=== PATIENT | female | born 1985 | race Caucasian/White ===

== ENCOUNTER 2016-08-07 11:17 | Emergency (ER) | payer OTHER ==
[~2016-08-07] VITALS: Ht 172.7 cm; Wt 55.0 kg
[2016-08-07 11:18] VITALS: BP 118/67; PULSE 84; RESP 20; TEMP 98.7; O2SAT 99
--- NOTE | 2016-08-07 12:23 | PD ---
HPI Chief Complaint: Related Problem Time Seen by Provider: 12:04 Travel History International Travel<30 days: No Contact w/Intl Traveler<30days: No Traveled to known affect area: No History of Present Illness HPI 30 yo female here for evaluation of possible . Per patient she missed her last period and has not had one in about two months. Actively trying for many months. Performed urine test yesterday which was positive. States feeling bloating. No pain. Some nausea. No urinary or BM issues. No Vaginal bleed or discharge. States she is RH- and was told that on her last she will need rhogham shots throughout her next . She comes here to get evaluated for this. She has no OB in the area as she just moved here from [facility]. Denies any other medical issues. PFSH Past Medical History ?: LMP: 06/07/2016 Social History Alcohol Use: No Tobacco Use: Yes Substance Use: No Allergies-Medications (Allergen,Severity, Reaction): Coded Allergies: No Known Allergies (Unverified , 08/07/16) Review of Systems Except as stated in HPI: all other systems reviewed are Neg Physical Exam Narrative GENERAL: SKIN: Warm and dry. HEAD: Atraumatic. Normocephalic. EYES: Pupils equal and round. No scleral icterus. No injection or drainage. ENT: No nasal bleeding or discharge. Mucous membranes pink and moist. Tongue is midline. No uvula deviation NECK: Trachea midline. No JVD. CARDIOVASCULAR: Regular rate and rhythm. No murmurs, S3, S4. RESPIRATORY: No accessory muscle use. Clear to auscultation. Breath sounds equal bilaterally. GASTROINTESTINAL: Abdomen soft, non-tender, nondistended. Hepatic and splenic margins not palpable. MUSCULOSKELETAL: Extremities without clubbing, cyanosis, or edema. No obvious deformities. NEUROLOGICAL: Awake and alert. No obvious cranial nerve deficits. Motor grossly within normal limits. Five out of 5 muscle strength in the arms and legs. Normal speech. PSYCHIATRIC: Appropriate mood and affect; insight and judgment normal. Data Data Last Documented VS Vital Signs Date Time Temp Pulse Resp B/P Pulse Ox O2 Delivery O2 Flow Rate FiO2 08/07/16 11:18 98.7 84 20 118/67 99 Room Air Orders Beta Hcg (Quant/Titer) (08/07/16 11:49) Complete Rh (08/07/16 11:49) Type And Screen (08/07/16 11:49) Urinalysis - C+S If Indicated (08/07/16 11:49) Ed Urine Pregnancytest Poc (08/07/16 11:49) Rhogam Only (08/07/16 13:03) Labs Laboratory Tests Test 08/07/16 08/07/16 08/07/16 12:08 12:12 13:03 Urine Color LIGHT-YELLOW Urine Turbidity CLEAR Urine pH 7.5 Urine Specific Chaplin 1.008 Urine Protein NEG mg/dL Urine Glucose (UA) NEG mg/dL Urine Ketones NEG mg/dL Urine Occult Blood NEG Urine Nitrite NEG Urine Bilirubin NEG Urine Urobilinogen LESS THAN 2.0 MG/DL Urine Leukocyte Esterase NEG Urine RBC LESS THAN 1 /hpf Urine WBC 1 /hpf Urine Squamous Epithelial 1 /hpf Cells Microscopic Urinalysis Comment CULT NOT INDICATED Human Chorionic Gonadotropin, 7869 MIU/ML Quant Blood Type B NEGATIVE Rho(D) Type Antibody Screen NEGATIVE Blood Bank Comment MDM Medical Decision Making Medical Screen Exam Complete: Yes Emergency Medical Condition: Yes Medical Record Reviewed: Yes Interpretation(s) UA negative Beta in the 7000s Differential Diagnosis ectopic vs vs abdominal pain Narrative Course 30 yo female that presents here for eval of possible , bloating and rhogam shot. Patient was properly examined and found to have signs and symptoms consistent with . Urine test and blood preg and US ordered. This showed about 4-6 weeks. US pending. Before patient could get ultrasound I was informed by nurse that patient had to leave to apple picker son. She left before I could reevaluate her. She was told by nurse of risk of leaving including , and compromise. patient left AMA. AMA: The risks of leaving against medical advice without further evaluation treatment were discussed with the patient. These risks include cardiac dysfunction, cardiac dysrhythmia, possible heart attack, possible stroke or . The patient indicated understanding of these risks and appeared to have the capacity to make this decision. Diagnosis Primary Impression: Left against medical advice Additional Impression: Qualified Code: Z3A.01 - Less than 8 weeks gestation of Patient Instructions: General Instructions Med/Other Pt SpecificInfo: No Change to Meds Disposition: 07 AGAINST MEDICAL ADVICE Condition: Stable Andrés Ny August 07, 2016 12:09
[2016-08-07 12:24] LABS: BLOOD, URINE NEG (NEG); COMMENT (UR) CULT NOT INDICATED; CULTURE IF INDICATED CULT NOT INDICATED; GLUCOSE,URINE NEG (NEG); KETONE, URINE NEG (NEG); NITRITE,URINE NEG (NEG); PH, URINE 7.5 (5.0-8.5); SQUAMOUS EPITHELIAL CELL URINE 1 /hpf (0-5); URINE COLOR LIGHT-YELLOW (YELLW/STRAW)
[2016-08-07 12:55] LABS: BETA HCG QUANT 7869 MIU/ML (0-5)
== END 2016-08-07 13:07 | disposition left against medical advice (07) ==
LOC: NEPD 11:17
DX: O26.891 Other specified pregnancy related conditions, first trimester (principal); O36.0910 Maternal care for other rhesus isoimmunization, first trimester, not applicable or unspecified; Z72.0 Tobacco use; Z53.29 Procedure and treatment not carried out because of patient's decision for other reasons; Z3A.01 Less than 8 weeks gestation of pregnancy
CPT/HCPCS: 81001; 84702; 84703; 86850; 86900; 86901; 99283

== ENCOUNTER 2016-08-07 14:56 | Emergency (ER) | payer OTHER ==
[~2016-08-07] VITALS: Ht 172.7 cm; Wt 57.0 kg
[2016-08-07 14:57] VITALS: BP 116/57; PULSE 80; RESP 18; TEMP 98.7; O2SAT 99
--- NOTE | 2016-08-07 16:24 | PD ---
HPI Chief Complaint: Related Problem Time Seen by Provider: 16:18 Travel History International Travel<30 days: No Contact w/Intl Traveler<30days: No Traveled to known affect area: No History of Present Illness HPI 30 yo female here for evaluation of rhogham shot as well as . Patient has a history of . Patient was just seen here less than 2 hours ago for evaluation of same. Patient left AMA as she had to berry picker machine operator her son and she came back. Patient adamant that she needs to come shot. Patient denies any other medical complaints other than some pain in her lower abdomen. Which she calls more bloating but she does state that she is somewhat tender. She denies any vaginal discharge or bleeding. She denies any chest pain. No shortness of breath. No other medical issues. Patient is about 4-6 weeks per her laboratory testing. [facility] Past Medical History ?: LMP: 2 months ago Social History Alcohol Use: No Tobacco Use: Yes Substance Use: No Allergies-Medications (Allergen,Severity, Reaction): Coded Allergies: No Known Allergies (Unverified , 08/07/16) Review of Systems Except as stated in HPI: all other systems reviewed are Neg Physical Exam Narrative GENERAL: SKIN: Warm and dry. HEAD: Atraumatic. Normocephalic. EYES: Pupils equal and round. No scleral icterus. No injection or drainage. ENT: No nasal bleeding or discharge. Mucous membranes pink and moist. Tongue is midline. No uvula deviation. NECK: Trachea midline. No JVD. CARDIOVASCULAR: Regular rate and rhythm. No murmurs, S3, S4. RESPIRATORY: No accessory muscle use. Clear to auscultation. Breath sounds equal bilaterally. GASTROINTESTINAL: Abdomen soft, non-tender, nondistended. Hepatic and splenic margins not palpable. MUSCULOSKELETAL: Extremities without clubbing, cyanosis, or edema. No obvious deformities. Full range of motion of the upper and lower extremities bilaterally. 2+ pulses bilaterally. NEUROLOGICAL: Awake and alert. No obvious cranial nerve deficits. Motor grossly within normal limits. Five out of 5 muscle strength in the arms and legs. Normal speech. PSYCHIATRIC: Appropriate mood and affect; insight and judgment normal. Data Data Last Documented VS Vital Signs Date Time Temp Pulse Resp B/P Pulse Ox O2 Delivery O2 Flow Rate FiO2 08/07/16 14:57 98.7 80 18 116/57 99 Room Air Orders Us Pelvis (Ques Pr/Ect)W Trans (08/07/16 ) Rhogam Only (08/07/16 13:03) Labs Laboratory Tests Test 08/07/16 13:03 Blood Bank Comment MDM Medical Decision Making Medical Screen Exam Complete: Yes Emergency Medical Condition: Yes Medical Record Reviewed: Yes Differential Diagnosis versus ectopic versus Rh- Narrative Course 30-year-old female that presents to the ED for evaluation of possible . Patient was properly examined and was found to have signs and symptoms consistent with . Patient actually was seen by me 2 hours ago and she left AMA as she had to berry picker machine operator her son. Patient had blood work that showed that she is about 4-6 weeks . Patient did not stay for the ultrasound. Patient very adamant that she needs the SHOT. I discussed this with my attending Dr. Ford who evaluated the patient with me and agrees that point and does not seem to be indicated at this time. She states that she needs to get 4 shots of rhogham and she was told this by her [facility] doctor in [place]. My attending asked me to speak with [employer] on-call. I spoke with OB/ [employer] on-call and they state that she does not really meet criteria to receive this shot as she has no bleeding or indication for it. She will be indicated if there was more additional testing done to see if she needs it but she will need until older gestation age per her recommendation. She suggested the patient follows up outpatient with an OB to do more testing and see whether she needs this or not. Patient was not happy with this answer but she did request the ultrasound and she complains of some pains ultrasound was ordered. She understands that she will not get the program shot as she does not need it at this time. Ultrasound ordered as she does complain of lower pelvic pain. She unfortunately decided she could not wait and started cursing at staff and left AMA before US or I could talk to her. Diagnosis Primary Impression: Left against medical advice Additional Impression: Qualified Code: Z3A.01 - Less than 8 weeks gestation of Patient Instructions: General Instructions Med/Other Pt SpecificInfo: No Meds Exist/No RX given Disposition: 07 AGAINST MEDICAL ADVICE Condition: Andrés Yang August 07, 2016 16:24
== END 2016-08-07 16:15 | disposition left against medical advice (07) ==
LOC: NEPD 14:56
DX: O26.891 Other specified pregnancy related conditions, first trimester (principal); R10.30 Lower abdominal pain, unspecified; Z72.0 Tobacco use; Z53.29 Procedure and treatment not carried out because of patient's decision for other reasons; Z3A.01 Less than 8 weeks gestation of pregnancy
CPT/HCPCS: 99283